=== PATIENT | female | born 1990 | race Caucasian/White ===

== ENCOUNTER 2017-03-24 09:09 | Emergency (ER) | payer BC, SELFPAY ==
[2017-03-24 09:10] VITALS: BP 153/102; PULSE 98; RESP 16; TEMP 36.6; O2SAT 93; BMI 34.7
--- NOTE | 2017-03-24 09:18 | ED.VISSUMM ---
- ER Visit Summary Date of Service: 03/24/17 Chief Complaint: Onset of chest pain on Thursday History of Present Illness: The patient is a 26 F who presents with left-sided chest pain that is under her left breast and is worse with movement of the torso, left upper extremity and breathing. She denies any fever, chills or night sweats. She has had minor nasal congestion otherwise no URI symptoms. She has no history of VTE and only risk factor is control pills. He denies any leg pain, swelling or discoloration. She denies trauma. She is unaware of a rash or any lesions. She denies any dysuria, frequency, urgency or hematuria. Physical Examination: Patient's vital signs are remarkable for a blood pressure of 153/102. Pulse ox documented by triage 93%. Echo was attached the patient's finger and pulse ox reads 98% and her heart rate is less than 90 on the monitor. Head is atraumatic normocephalic. Pupils are equal round reactive. Extraocular muscles are intact. TMs are pearly white with landmarks noted. Nares patent with no drainage. Posterior pharynx without erythema or exudate. Uvula is midline. There is no dysphonia or dysphasia. Trachea is midline. There is no stridor with auscultation of the neck. Heart is regular without murmur, gallop or rub. S1 and S2 are normal. Lungs are clear to auscultation with good movement of air bilaterally. Patient has reproducible pain to palpation over the left sixth and seventh rib from the mid clavicular line to the posterior axillary line. There is no hyperesthesia. There is no rash or lesions to suggest herpes varicella-zoster. There is no asymmetry, swelling, discoloration, leg vein distention, palpable cords or tenderness along the distribution of the deep venous system. Neuro exam is nonfocal. Test Results: None Emergency Department Course and Treatment: Since patient has reproducible pain and has not taken anything for her pain she was treated with NSAID since she has no contraindication and discharged to home to follow-up with Dr. Funes if no improvement in 3-5 days. Treatment Plan: Anti-inflammatory and outpatient follow-up if no improvement Disposition: Discharged to home Impression: Left sided musculoskeletal chest pain initial encounter This note was generated with [employer] software. It may contain incorrect words, spelling, and punctuation that were not noted in review of the chart prior to signing ED Disposition - Plan for ED Patient: Disposition: Home or Assisted Living Chief Complaint: Chest Pain Instructions: ED Chest Pain NonCardiac Prescriptions: Naproxen [Naprosyn] 500 mg PO BID #10 tab Referrals: Jorge Funes MD [Family Provider] - 3-5 Days if not improving
--- NOTE | 2017-03-24 09:28 | ED.DCSUM_ITS ---
- ER Visit Summary Date of Service: 03/24/17 Chief Complaint: Onset of chest pain on Thursday History of Present Illness: The patient is a 26 F who presents with left-sided chest pain that is under her left breast and is worse with movement of the torso , left upper extremity and breathing. She denies any fever, chills or night sweats. She has had minor nasal congestion otherwise no URI symptoms. She has no history of VTE and only risk factor is control pills. He denies any leg pain, swelling or discoloration. She denies trauma. She is unaware of a rash or any lesions. She denies any dysuria, frequency, urgency or hematuria. Physical Examination: Patient's vital signs are remarkable for a blood pressure of 153/102. Pulse ox documented by triage 93%. Echo was attached the patient' s finger and pulse ox reads 98% and her heart rate is less than 90 on the monitor. Head is atraumatic normocephalic. Pupils are equal round reactive. Extraocular muscles are intact. TMs are pearly white with landmarks noted. Nares patent with no drainage. Posterior pharynx without erythema or exudate. Uvula is midline. There is no dysphonia or dysphasia. Trachea is midline. There is no stridor with auscultation of the neck. Heart is regular without murmur, gallop or rub. S1 and S2 are normal. Lungs are clear to auscultation with good movement of air bilaterally. Patient has reproducible pain to palpation over the left sixth and seventh rib from the mid clavicular line to the posterior axillary line. There is no hyperesthesia. There is no rash or lesions to suggest herpes varicella-zoster. There is no asymmetry, swelling, discoloration, leg vein distention, palpable cords or tenderness along the distribution of the deep venous system. Neuro exam is nonfocal. Test Results: None Emergency Department Course and Treatment: Since patient has reproducible pain and has not taken anything for her pain she was treated with NSAID since she has no contraindication and discharged to home to follow-up with Dr. Funes if no improvement in 3-5 days. Treatment Plan: Anti-inflammatory and outpatient follow-up if no improvement Disposition: Discharged to home Impression: Left sided musculoskeletal chest pain initial encounter This note was generated with [employer] software. It may contain incorrect words, spelling, and punctuation that were not noted in review of the chart prior to signing ED Disposition - Plan for ED Patient: Disposition: Home or Assisted Living Chief Complaint: Chest Pain Instructions: ED Chest Pain NonCardiac Prescriptions: Naproxen [Naprosyn] 500 mg PO BID #10 tab Referrals: Jorge Funes MD [Family Provider] - 3-5 Days if not improving
[2017-03-24] MEDS: Naproxen 250 MG Tablet 500 MG PO (09:34)
== END 2017-03-24 09:53 | disposition home or self-care (01) ==
PROVIDERS: Emergency Provider Emergency Medicine; Family Provider Family Medicine
DX: R07.89 Other chest pain (principal); Z87.891 Personal history of nicotine dependence
CPT/HCPCS: 99282